=== PATIENT | male | born 1990 | race Caucasian/White ===

== ENCOUNTER 2023-12-27 10:25 | Outpatient (CLI) | payer OTHER ==
--- NOTE | 2023-12-27 11:02 | Sleep Patient Instructions ---
Sleep Center Visit Summary - Patient Visit Information Reason for Visit: Initial consult for evaluation of sleep disordered breathing and other sleep issues. - Patient Instructions Instructions Attached: Sleep Study Additional Instructions: You will be completing a sleep study, either an in-lab polysomnography (PSG) or home sleep study (HST). You will follow-up in the sleep care office after the sleep study is completed to hear the results and talk about therapy, if needed. You will be called by our office staff to schedule this appointment, but you may contact us with any questions. - Clinic Information Contact: [facility] [address] [place] [address] [email or web address] T: [phone]
--- NOTE | 2023-12-27 11:07 | SLEEP CARE CONSULTATION ---
Information from patient questionnaire entered by Guanako Aguayo. I have reviewed and concur with the information entered by Guanako Aguayo. This document represents the service I personally performed and the decisions made by me, Quin Rodriguez ARNP. History of Present Illness Service Date and Time: 12/27/2023 1025 Reason for Visit: New patient Chief Complaint: reports: Insomnia, Unrefreshed sleep, Snoring, Excessive daytime sleepiness, Fatigue, Frequent awakenings at night Date of Onset: Almost 2 years ago Usual bedtime: 9:30 - 10 PM Time it takes to fall asleep: About an hour Snores at night: Yes Observed to quit breathing while asleep: Yes Sleeps alone due to snoring: Yes Number of times waking at night: 2 - 3 times Reasons for waking at night: reports: Snoring, Gasping for air (sometimes), Other (Unknown reason). denies: Choking Toss, Turn, or Twitch while sleeping: Yes Recalls having dreams: Yes Usually gets out of bed at: 4:30 - 5 AM Feels refreshed in the morning: No Morning headache: No Sleepy or fatigued during the day: Yes Ever fallen asleep while driving: Yes (drowsy driving, no accidents) Takes day naps: Yes (very rare) Dreams during day naps: No Prior sleep studies: No Additional HPI information: I had the pleasure of seeing DEBBIE WORKS today regarding the possibility of him having a sleep disorder. His current complaints are excessive daytime sleepines s, fatigue, frequent night awakenings, snoring and unrefreshed sleep. He says he never gets a full night's rest, only about 4 hours of sleep. He wakes up a couple times a night. He does not know what wakes him up, but he wakes up alert. He gets drowsy throughout the day. He can sometimes within 20-30 minutes but he will then wake up a couple hours and then hourly throughout the night. He wakes up feeling fatigued. - Parasomnia Symptoms Ever been unable to move upon waking from sleep: No Walks in sleep: No Talks in sleep: Yes Ever acted out dreams in sleep: Yes (jolt awake when falling asleep) Ever felt weak in the knees when startled or emotional: Yes Bothered by creepy, crawly, restless sensations in legs: Yes (constantly moving legs, hard to get comfortable) Problems with memory or concentration: Yes (both) Subjective Initial Oxford Sleepiness Scale score: 21 (12/27/23) Past Medical History Past Medical History: reports: Anxiety, Depression Social History The patient's occupation is active duty in the [employer]. Patient is single and lives in [place]. Have you smoked in the past 12 months: No Alcohol use: Yes Alcohol amount and frequency: 3 - 4 bottles a month - not very often Caffeine use: Yes Caffeine amount and frequency: 1 a day - not very often Family History Family history of sleep disordered breathing: Yes Family Hx Sleep Apnea: Mother: Snoring, Sleep apnea - Untreated, Father: Snoring, Sleep apnea - Untreated, Sibling: Snoring, Sleep apnea - Untreated, Grandparent: Snoring, Sleep apnea - Untreated Allergies and Home Medications Known drug allergies: No Drug allergies reviewed: Yes Home medication list reviewed: Yes Allergy and home medication list: Allergies No Known Drug Allergies Allergy (Verified 12/27/23 10:56) Home Medications No Known Home Medications 12/27/23 [History] Review of Systems Cardiovascular: denies: high blood pressure Respiratory: reports: shortness of breath, wheeze Neurological: denies: headaches Psychiatric: reports: anxiety, depression Ear/Nose/Throat: reports: nasal congestion, sinus problems, nose bleeds, wisdom teeth removed. denies: tonsillectomy Endocrine: reports: sluggishness (/tired) Musculoskeletal: reports: neck pain, back pain Immunologic: reports: sneezing (/runny nose), itching Physical Exam Vital signs obtained and entered by: Quin Estes NP Blood Pressure: 122/70 Cuff size: regular (left arm) Heart Rate: 57 O2 Saturation: 98 Height: 5 ft 8 in Weight: 153 lb 9.6 oz Body Mass Index: 23.3 BMI Classification: Normal Neck circumference: 14 Nostrils: patent to airflow Mouth and throat: narrow oropharynx Soft palate: long Hard palate: normal Uvula: normal Uvula visualization: 25% Mallampati Class III Tongue: enlarged in size with teeth acevedo on lateral edges Tonsils: 1+ Neck: normal w/o lymphadenopathy or thyromegaly Heart: regular rate and rhythm Lungs: clear bilaterally Impression and Plan 1. Suspected Obstructive Sleep Apnea-Hypopnea Syndrome, as suggested by a history of loud and irregular snoring, gasping or choking in sleep, frequent awakening during the night, unrefreshed sleep, cognitive impairment, and excessive daytime sleepiness. Narrow oropharynx and obesity are common predisposing factors for obstructive sleep apnea-hypopnea syndrome. I recommend proceeding to polysomnography to confirm the diagnosis and to assess severity. If the patient has significant sleep disordered breathing, a manual CPAP titration study will also be performed to find the optimal treatment pressure. I informed the patient of what the sleep studies involve and after some discussion, obtained agreement to proceed. The pathophysiology of obstructive sleep apnea-hypopnea syndrome was discussed with the patient and health risks of cardiovascular and cerebrovascular disease if not treated. Risks of drowsy driving discussed in detail and patient advised to avoid long distance driving and to rack puller at the first sign of drowsiness. Patient agreed to plan. * Schedule polysomnography +- manual CPAP titration study and return in 1-2 weeks after the study to discuss result and initiate therapy. * Avoid long distance driving or driving when feeling sleepy. * Avoid alcohol, sedative and muscle relaxant around bedtime. * Review instructions provided by trained office staff on how to prepare for the sleep study. * Return for follow-up after sleep study completed. Plan: PSG and follow up Visit Type: In Office Time Spent with Patient (minutes): 30 Provider Statement: I spent 100% of the Face to Face Visit with the patient with greater than 50% spent counseling the patient and coordination of care.
[2023-12-27 11:11] VITALS: BP 122/70; O2SAT 98
== END 2023-12-27 10:26 | disposition home or self-care (01) ==
LOC: SC 10:25
PROVIDERS: ATTEND Nurse Practitioner Family
DX: R06.83 Snoring (principal); G47.10 Hypersomnia, unspecified; R53.83 Other fatigue; G47.8 Other sleep disorders; R41.89 Other symptoms and signs involving cognitive functions and awareness
CPT/HCPCS: 99203; 99212